=== PATIENT | male | born 1995 | race Caucasian/White ===

== ENCOUNTER 2018-02-07 12:21 | Emergency (ER) | payer OTHER ==
[~2018-02-07] VITALS: Ht 170.2 cm; Wt 80.0 kg
[2018-02-07] MEDS ORDERED: LIDOCAINE HCL/PF 1% 2ML VIAL INFIL ONE (13:00)
[2018-02-07] MEDS ORDERED: ONDANSETRON HCL 4MG/2ML INJ IV ONE (13:00)
[2018-02-07] MEDS ORDERED: MORPHINE SULFATE 4 MG/ML CPJ (NOT FOR IM USE) IV ONE (13:00)
[2018-02-07] MEDS ORDERED: CEFAZOLIN 1000MG PREMIX 50 ML IV ONE (13:00)
[2018-02-07] MEDS ORDERED: LIDOCAINE HCL 1% 20ML VIAL (Pyxis) INJ INFIL ONE (13:00)
[2018-02-07] MEDS ORDERED: LIDOCAINE HCL/PF 0.5% 5 MG/ML 50ML VIAL INFIL ONE (13:00)
[2018-02-07] MEDS ORDERED: SODIUM CHLORIDE 0.9% 1,000 ML IV ONE (13:00)
[2018-02-07] MEDS ORDERED: LIDOCAINE HCL/PF 1% 10 MG/ML 30ML VIAL INFIL ONE (13:00)
[2018-02-07] MEDS ORDERED: LIDOCAINE HCL/PF 1% 10 MG/ML 5ML VIAL IJ NR (13:00)
[2018-02-07] MEDS ORDERED: LIDOCAINE HCL 1% 10 MG/ML 10ML VIAL ONE (13:11)
[2018-02-07] MEDS ORDERED: HYDROCODONE/ACETAMINOPHEN 5/325MG TABLET PO ONE (13:30)
[2018-02-07] MEDS ORDERED: CEPHALEXIN 500MG CAPSULE PO ONE (13:30)
[2018-02-07 14:35] VITALS: BP 110/80
== END 2018-02-07 14:55 | disposition home or self-care (01) ==
LOC: ER 12:21
DX: S68.124A Partial traumatic metacarpophalangeal amputation of right ring finger, initial encounter (principal); Y93.89 Activity, other specified; W31.89XA Contact with other specified machinery, initial encounter; Y92.89 Other specified places as the place of occurrence of the external cause; Y99.0 Civilian activity done for income or pay
CPT/HCPCS: 73140; 99284; J3490; J7030